=== PATIENT | female | born 1990 | race Caucasian/White ===

== ENCOUNTER 2019-01-30 18:47 | Emergency (ER) | payer MEDICAID ==
[~2019-01-30] VITALS: Ht 172.7 cm; Wt 68.0 kg
[2019-01-30 19:22] VITALS: BP_SYST 115
--- NOTE | 2019-01-30 19:27 | NUR ---
Pt placed to ER waiting room in stable condition.
--- NOTE | 2019-01-30 19:43 | NUR ---
Coughing x 2 months, worse at night and wakes up choking on phlegm. Seen at [facility] 3 weeks ago, given Mucinex and Inhaler with no relief. Airway patent, respirations even and non-labored, NAD.
--- NOTE | 2019-01-30 19:43 | NUR ---
Pt placed to [facility]. Report given to JORGE Thomas.
--- NOTE | 2019-01-30 19:55 | NUR ---
Louie Lew, PAC at beside assessing pt.
[2019-01-30] MEDS ORDERED: ALBUTEROL SULFATE 0.083% 2.5 MG/3 ML VIAL.NEB INH ONE (20:15)
--- NOTE | 2019-01-30 20:34 | NUR ---
RT at bedside to administer DuoNeb tx.
--- NOTE | 2019-01-30 20:43 | NUR ---
Pt states that she's going out to the car to get her significant other and will return.
--- NOTE | 2019-01-30 20:55 | NUR ---
Pt returns to bed. Louie at bedside to discuss POC.
[2019-01-30 20:59] VITALS: BP_SYST 115
--- NOTE | 2019-01-30 20:59 | NUR ---
Patient given written and verbal discharge instructions and verbalizes understanding. ER MD discussed with patient the results and treatment provided. Patient in stable condition. ID arm band removed. Rx of Promethazine with Dextromethorphan, Ventolin, Medrol given. Patient educated on pain management and to follow up with PMD. Pain Scale 2/10. Opportunity for questions provided and answered. Medication side effect fact sheet provided.
== END 2019-01-30 20:59 | disposition home or self-care (01) ==
LOC: SED 18:47
DX: J20.9 Acute bronchitis, unspecified (principal); F17.210 Nicotine dependence, cigarettes, uncomplicated
CPT/HCPCS: 94640; 99283; J7613

== ENCOUNTER 2019-05-22 20:53 | Emergency (ER) | payer MEDICAID ==
[~2019-05-22] VITALS: Ht 167.6 cm; Wt 64.9 kg
[2019-05-22 20:59] VITALS: BP_SYST 108
--- NOTE | 2019-05-22 21:13 | NUR ---
Pt ambulatory to bed 1 for evaluation
--- NOTE | 2019-05-22 21:28 | NUR ---
Pt complains of cough for the last 5 months. Pt states she was diagnosed with bronchitis for the last few weeks and she finished her antibiotics but states she feels as if she has not gotten better. Pt has been coughing continuously for the last 2 months and states she has chills. Pt is afebrile in ED. No other injuries/complaints per patient or noted.
--- NOTE | 2019-05-22 21:44 | NUR ---
ER Dr. Landry at bedside examining patient.
--- NOTE | 2019-05-22 21:56 | NUR ---
Patient went to radiology in stable condition.
[2019-05-22] MEDS ORDERED: PREDNISONE 20 MG TABLET PO ONE (22:00)
[2019-05-22] MEDS ORDERED: LevALBUTEROL HCL 1.25 MG/0.5 ML *CONC.* VIAL.NEB (XOPENEX CONC.) INH ONE (22:00)
[2019-05-22] MEDS ORDERED: IPRATROPIUM BROM 0.5 MG/2.5 ML VIAL.NEB (ATROVENT) IH ONE (22:00)
--- NOTE | 2019-05-22 22:02 | NUR ---
RT at bedside administering breathing treatment for patient. Pt tolerated well.
[2019-05-22 22:42] VITALS: BP_SYST 131
--- NOTE | 2019-05-22 22:42 | NUR ---
Patient given written and verbal discharge instructions and verbalizes understanding. ER MD discussed with patient the results and treatment provided. Patient in stable condition. ID arm band removed. Rx of Albuterol, Amoxicillin, Tessalon, and Prednisone given. Patient educated on pain management and to follow up with PMD. Pain Scale 0. Opportunity for questions provided and answered. Medication side effect fact sheet provided.
== END 2019-05-22 22:42 | disposition home or self-care (01) ==
LOC: SED 20:53
DX: J20.9 Acute bronchitis, unspecified (principal)
CPT/HCPCS: 71046; 81002; 81025; 94640; 99283; J7512; J7612

== ENCOUNTER 2020-03-20 01:16 | Emergency (ER) | payer MEDICAID, SELFPAY ==
[~2020-03-20] VITALS: Ht 172.7 cm; Wt 65.8 kg
[2020-03-20 01:20] VITALS: BP_SYST 119
--- NOTE | 2020-03-20 01:20 | NUR ---
Patient triaged and placed in waiting room. VSS and patient appears in no acute distress at this time. Accompanied by SELF, awaiting available bed, and MD notified of need for MSE.
--- NOTE | 2020-03-20 01:46 | NUR ---
ER examining patient in the triage room.
--- NOTE | 2020-03-20 01:53 | NUR ---
Patient to ER bed 2 to gown for evaluation. Side rails up. Report given to Caleb PATEL.
--- NOTE | 2020-03-20 01:55 | NUR ---
Pt brought in by self. Pt states shortness of breath/difficulty breathing with productive cough over past several days. Pt denies chest pain, nausea, vomiting, diarrhea. Pt states that she feels she may have Novel coronavirus. Pt Denies any other medical complaint at this time. Pt resting in ED bed comfortably.
[2020-03-20] MEDS ORDERED: ALBUTEROL SULFATE 0.083% 2.5 MG/3 ML VIAL.NEB INH ONE ×3 (02:00→03:36)
[2020-03-20] MEDS ORDERED: IPRATROPIUM BROM 0.5 MG/2.5 ML VIAL.NEB (ATROVENT) INH ONE (02:00)
[2020-03-20] MEDS ORDERED: PREDNISONE 20 MG TABLET PO ONE (02:00)
--- NOTE | 2020-03-20 02:00 | NUR ---
ER at bedside examining patient.
--- NOTE | 2020-03-20 02:15 | NUR ---
Pt escorted to Triage/isolation tent for HHN treatment per 's intructions.
[2020-03-20] MEDS ORDERED: PREDNISONE 20 MG TABLET ONE (02:19)
--- NOTE | 2020-03-20 03:15 | NUR ---
Pt Walked in place for 2 minutes, spo2 after activity was 97% on room air. Pt displays no s/s of distress. pt states she feels improved.
[2020-03-20 03:30] VITALS: BP_SYST 121
--- NOTE | 2020-03-20 03:30 | NUR ---
Patient given written and verbal discharge instructions and verbalizes understanding. ER MD discussed with patient the results and treatment provided. Patient in stable condition. ID arm band removed. no IV Rx of Albuterol and Prednisone given. Patient educated on pain management and to follow up with PMD. Pain Scale 0/10. Opportunity for questions provided and answered. Medication side effect fact sheet provided.
== END 2020-03-20 03:30 | disposition home or self-care (01) ==
LOC: SED 01:16
DX: J20.9 Acute bronchitis, unspecified (principal); F17.210 Nicotine dependence, cigarettes, uncomplicated; Z20.828 Contact with and (suspected) exposure to other viral communicable diseases
CPT/HCPCS: 71045; 81025; 94640; 99284; C9803; J7512; J7613; U0003

== ENCOUNTER 2020-05-19 00:28 | Emergency (ER) | payer MEDICAID, SELFPAY ==
[~2020-05-19] VITALS: Ht 170.2 cm; Wt 60.3 kg
[2020-05-19 00:35] VITALS: BP_SYST 108
--- NOTE | 2020-05-19 00:35 | NUR ---
Placed in room 8 . Placed on quality assurance monitor chassis, blood pressure machine and pulse oximeter. To gown for exam. Side rails up. Report given to Linda PATEL.
--- NOTE | 2020-05-19 00:41 | NUR ---
ER Dr. WU at bedside examining patient.
[2020-05-19] MEDS ORDERED: IPRATROPIUM/ALBUTEROL SULFATE 3 ML AMPUL.NEB (DUONEB) INH ONE (00:45)
[2020-05-19] MEDS ORDERED: methylPREDNISolone SOD SUCC/PF 62.5 MG/ML VIAL IM ONE (00:45)
--- NOTE | 2020-05-19 00:45 | NUR ---
PT A&O X4 C/O OF TROUBLE BREATHING DUE TO ASTHMA AND PRODUCTIVE COUGH FOR ABOUT A WEEK. PT STATES HER SHORTNESS OF BREATH WORSENS AT NIGHT. PT DENIES CHEST PAIN, NAUESEA, HEADACHE, DIARRHEA, CONSTIPATION, FEVER, CHILLS. PT STATES SHE SMOKE CIGARETTES ON A DAILY BASIS. PT USED FRIENDS INHALER MIXED WITH STEROIDS.
--- NOTE | 2020-05-19 00:55 | NUR ---
XRAY AT BEDSIDE.
--- NOTE | 2020-05-19 01:05 | NUR ---
COVID SWAB COLLECTED AND SENT TO LAB.
--- NOTE | 2020-05-19 01:13 | NUR ---
RESPIRATORY AT BEDSIDE.
--- NOTE | 2020-05-19 01:40 | NUR ---
PATIENT MEDICATED PER MD ORDER. PT TOLERATED WELL.
--- NOTE | 2020-05-19 01:41 | NUR ---
PT STATES HER BREATHING HAS IMPROVED AFTER BREATHING TREATEMENT. LUNG SOUNDS CLEAR.
[2020-05-19 01:45] VITALS: BP_SYST 122
--- NOTE | 2020-05-19 01:45 | NUR ---
Patient given written and verbal discharge instructions and verbalizes understanding. ER MD discussed with patient the results and treatment provided. Patient in stable condition. ID arm band removed. Rx of INHALER, PREDNISONE given. Patient educated on pain management and to follow up with PMD. Pain Scale 0/10. Opportunity for questions provided and answered. Medication side effect fact sheet provided.
== END 2020-05-19 01:45 | disposition home or self-care (01) ==
LOC: SED 00:28
DX: J45.901 Unspecified asthma with (acute) exacerbation (principal); F17.200 Nicotine dependence, unspecified, uncomplicated; Z71.6 Tobacco abuse counseling
CPT/HCPCS: 36415; 71045; 81025; 87426; 94640; 96372; 99284; J2930

== ENCOUNTER 2022-02-05 03:40 | Emergency (ER) | payer MEDICAID ==
[~2022-02-05] VITALS: Ht 170.2 cm; Wt 59.0 kg
[2022-02-05 04:00] VITALS: BP_SYST 122
--- NOTE | 2022-02-05 04:06 | NUR ---
PT TAKEN TO BED 1. AMBULATORY WITH STEADY GAIT. PLACED ON MONITOR. RT CALLED. DR. ARTHUR AWARE.
[2022-02-05] MEDS ORDERED: predniSONE 20 MG TABLET PO ONE (04:15)
[2022-02-05] MEDS ORDERED: ALBUTEROL SULFATE 0.083% 2.5 MG/3 ML VIAL.NEB INH ONE ×2 (04:15→05:30)
--- NOTE | 2022-02-05 04:20 | NUR ---
# 20 gauge angiocath placed to right AC. Use of asceptic technique. Opsite placed over site. Blood return noted. Blood for lab drawn from site. Flushed with 10 cc of normal saline. No evidence of infiltration noted. Patient tolerated well.
[2022-02-05] MEDS ORDERED: methylPREDNISolone SOD SUCC/PF 62.5 MG/ML VIAL IM ONE (04:30)
--- NOTE | 2022-02-05 04:31 | NUR ---
Pt on breathing treatment at this time. Family at bedside.
[2022-02-05] MEDS ORDERED: NACL 0.9% 1,000 ML IV ONE (04:45)
[2022-02-05] MEDS ORDERED: methylPREDNISolone SOD SUCC/PF 62.5 MG/ML VIAL IVP ONE (04:45)
--- NOTE | 2022-02-05 05:56 | NUR ---
Pt receiving breathing tx at this time. Flu and covid swab walked to lab.
[2022-02-05 07:07] VITALS: BP_SYST 126
[2022-02-05] MEDS ORDERED: ALBMDI INH (07:12)
[2022-02-05] MEDS ORDERED: ALBU0.63 NEB (07:12)
[2022-02-05] MEDS ORDERED: PRED20TA PO (07:12)
--- NOTE | 2022-02-05 07:17 | NUR ---
report given to Mary PATEL
--- NOTE | 2022-02-05 07:22 | NUR ---
Assumed care of pt. Pt is in bed resting with no s/s of distress. Pt is connected to cardiac nurse and HR elevated at 127 and O2 is at 94% with NC 4L. Skin intact. 20g IV intact on left AC no infiltration noted. Bed in lowest position. Significant other at bedside.
--- NOTE | 2022-02-05 07:30 | NUR ---
ER at bedside examining patient.
--- NOTE | 2022-02-05 08:07 | NUR ---
Called RT to provide another breathing tx to pt.
--- NOTE | 2022-02-05 08:11 | NUR ---
RT at bedside.
[2022-02-05] MEDS ORDERED: LIDOCAINE MPF 2% 20 MG/1 ML, 5 ML VIAL INH ONE (08:15)
[2022-02-05] MEDS ORDERED: IPRATROPIUM/ALBUTEROL SULFATE 3 ML AMPUL.NEB (DUONEB) INH ONE (08:15)
--- NOTE | 2022-02-05 09:19 | NUR ---
Patient given written and verbal discharge instructions and verbalizes understanding. ER MD discussed with patient the results and treatment provided. Patient in stable condition. ID arm band removed. IV catheter removed intact and dressing applied, no active bleeding. Rx of Albuterol and Prednisone given. Patient educated on pain management and to follow up with PMD. Pain Scale 0/10. Opportunity for questions provided and answered. Medication side effect fact sheet provided.
== END 2022-02-05 09:19 | disposition home or self-care (01) ==
LOC: SED 03:40
DX: J45.901 Unspecified asthma with (acute) exacerbation (principal); J20.9 Acute bronchitis, unspecified; F12.90 Cannabis use, unspecified, uncomplicated; Z20.822 Contact with and (suspected) exposure to COVID-19
CPT/HCPCS: 36415; 71045; 87426; 87804 ×2; 94640; 96361; 96374; 99291; J2930; J7030; J7613; 94760

== ENCOUNTER 2023-01-13 01:26 | Emergency (ER) | payer MEDICAID ==
[~2023-01-13] VITALS: Ht 170.2 cm; Wt 62.6 kg
[~2023-01-13 01:26] MED LIST: ALBMDI INH; ALBU0.63 NEB; PRED20TA PO
[2023-01-13 01:47] VITALS: BP_SYST 123
[2023-01-13] MEDS ORDERED: IPRATROPIUM/ALBUTEROL SULFATE 3 ML AMPUL.NEB (DUONEB) INH ONE (02:15)
[2023-01-13] MEDS ORDERED: predniSONE 20 MG TABLET PO ONE (02:15)
[2023-01-13] MEDS ORDERED: ALBMDI INH (03:05)
[2023-01-13] MEDS ORDERED: PRED20TA PO (03:05)
[2023-01-13] MEDS ORDERED: ALBU2.5V7 INH (03:05)
[2023-01-13 03:13] VITALS: BP_SYST 120
== END 2023-01-13 03:13 | disposition home or self-care (01) ==
LOC: SED 01:26
DX: J45.901 Unspecified asthma with (acute) exacerbation (principal); Z76.0 Encounter for issue of repeat prescription; R06.02 Shortness of breath; Z79.899 Other long term (current) drug therapy
CPT/HCPCS: 99283; 94640; J7512